=== PATIENT | female | born 1970 | race American Indian/Alaskan Native ===

== ENCOUNTER 2019-09-09 09:55 | Observation (INO) | payer BC ==
--- NOTE | 2019-09-02 11:20 | Anesthesia Consultation ---
Anesthesia Consult and Med Hx Date of service: 09/02/19 - Airway Anesthetic Teeth Evaluation: Caps, Partials (implanted Incisor) ROM Head & Neck: Adequate Mental/Hyoid Distance: Adequate Mallampati Class: Class I Intubation Access Assessment: Good - Pulmonary Exam CTA: Yes - Cardiac Exam Cardiac Exam: RRR - Pre-Operative Health Status ASA Pre-Surgery Classification: ASA2 Proposed Anesthetic Plan: General - Central Nervous System Hx Seizures: Yes (As a child, last at age18) Hx Psychiatric Problems: No - Hematic Hx Anemia: Yes - Other Systems Hx Cancer: No
[2019-09-02 11:22] LABS: Basophils % (Auto) 0.6 % (0.0-1.8); Eosinophils % (Auto) 0.7 % (0.0-4.3); Hemoglobin 7.6 gm/dl (10.1-14.3); Lymphocytes % (Auto) 34.3 % (13.4-35.0); Mean Corpuscular HGB Conc 32 % (30-34); Mean Corpuscular Volume 83 fl (79-97); Monocytes # (Auto) 0.4 K/mm3 (0.0-0.8); Monocytes % (Auto) 6.4 % (0.0-7.3); Platelet Count 353 K/mm3 (140-440); Red Blood Count 2.87 M/mm3 (3.65-5.03); Red Cell Distribution Width 16.9 % (13.2-15.2)
[~2019-09-09 09:55] MED LIST: CELECOXIB 200 MG CAP PO NR; GABAPENTIN 300 MG CAP PO NR; LACTATED RINGERS 1,000 ML IV SCH; MAGNESIUM OXIDE 400 MG TAB PO SCH; MIDAZOLAM 2 MG/2 ML INJ IV NR; SCOPOLAMINE TRANSDERMAL PATCH 72 HR TD NR; SODIUM CHLORIDE 0.9% 500 ML 500 ML IV ONE; fentaNYL 100 MCG/2 ML INJ IV PRN
[2019-09-09] MEDS ORDERED: HYDROmorphone 1 MG/1 ML INJ ONE (10:02)
[2019-09-09] MEDS ORDERED: propofoL 200 MG/20 ML VIAL IV ONE (10:02)
[2019-09-09] MEDS ORDERED: LIDOCAINE MPF (2%) 20 MG/1 ML VIAL 5 ML ONE (10:04)
[2019-09-09] MEDS ORDERED: ROCURONIUM 50 MG/5 ML INJ IV ONE (10:04)
[2019-09-09] MEDS ORDERED: NEOMY 40 MG/POLYMYXIN B 200,000 UNITS/ML (GU) AMPULE IR ONE ×2 (10:14→12:30)
[2019-09-09] MEDS ORDERED: BUPIVACAINE-EPINEPHRINE/PF 0.5%-1:200,000 (30 ML) VIAL INFILTRATI ONE (10:38)
[2019-09-09] MEDS ORDERED: BUPIVACAINE-EPINEPHRINE/PF 0.5%-1:200,000 (10 ML) VIAL INFILTRATI ONE (10:39)
--- NOTE | 2019-09-09 10:59 | History and Physical Report ---
History of Present Illness Date of examination: 09/09/19 Chief complaint: Pelvic pain and prolonged vaginal bleeding History of present illness: Pt is a 49yo BF LMP 08/28/19 presents for surgical evaluation and treatment of pelvic pain and prolonged vaginal bleeding. She complains of pelvic pain for several years, thought to be associated with the Essure device, and has been hospitalized for blood transfusions due to severe anemia. She desires ovarian conservation and now presents for a Robotic Assisted Total Hysterectomy with Bilateral Salpingectomy. Past History Past Medical History: hematologic disorders (anemia) Past Surgical History: other (hernia repair) Family/Genetic History: none Social history: no significant social history, Medications and Allergies Allergies Allergy/AdvReac Type Severity Reaction Status Date / Time latex Allergy Swelling Verified 08/29/19 16:16 Home Medications Medication Instructions Recorded Confirmed Last Taken Type Ergocalciferol [Vitamin D2] 1 cap PO QWEEK 09/02/19 09/09/19 09/02/19 08:00 History Ferrous Sulfate [Feosol] 325 mg PO QDAY 09/02/19 09/09/19 09/08/19 08:00 History Active Meds: Active Medications Celecoxib (Celebrex) 200 mg PO PREOP NR Stop: 09/09/19 23:59 Fentanyl (Sublimaze) 100 mcg IV ONCE PRN PRN Reason: sedation for nerve block Gabapentin (Gabapentin) 600 mg PO PREOP NR Stop: 09/09/19 23:59 Lactated Ringer's (Lactated Ringers) 1,000 mls @ 100 mls/hr IV DIRECT TAVO Cefazolin Sodium (Ancef/Sterile Water 2 Gm/20 Ml) 2 gm in 20 mls @ 80 mls/hr IV PREOP NR; Protocol Magnesium Oxide (Mag-Ox) 400 mg PO PREOP TAVO Midazolam HCl (Versed) 2 mg IV PREOP NR Stop: 09/09/19 23:59 Scopolamine (Transderm-Scop) 1 each TD PREOP NR Stop: 09/09/19 23:59 Review of Systems All systems: negative - Vital Signs Vital signs: Vital Signs Temp Pulse Resp BP Pulse Ox 97.3 F L 74 20 119/81 100 09/02/19 11:00 09/02/19 11:00 09/02/19 11:00 09/02/19 11:00 09/02/19 11:00 Temp Pulse Resp BP Pulse Ox 97.3 F L 74 20 119/81 100 09/02/19 11:00 09/02/19 11:00 09/02/19 11:00 09/02/19 11:00 09/02/19 11:00 - Physical Exam Breasts: Positive: deferred Cardiovascular: Regular rate Lungs: Positive: Clear to auscultation Abdomen: Positive: normal appearance, soft Genitourinary (Female): Positive: normal external genitalia Vagina: Positive: normal moisture Uterus: Positive: normal size Extremities: Positive: normal Results Result Diagrams: 09/02/19 10:00 All other labs normal. Ultrasound: report reviewed Assessment and Plan - Patient Problems (1) Pelvic pain Onset Date: 09/09/19 Current Visit: Yes Status: Chronic Plan to address problem: A: Chronic pelvic pain Menorrhagia Chronic blood loss anemia P: Admit for a Robotic Assisted Total Hysterectomy with Bilateral Salpingectomy May need a blood transfusion during surgery (2) Menorrhagia with irregular cycle Onset Date: 09/09/19 Current Visit: Yes Status: Chronic (3) Chronic blood loss anemia Onset Date: 09/09/19 Current Visit: Yes Status: Chronic
[2019-09-09] MEDS ORDERED: ceFAZolin/Water 2 GM/20 ML 2 GM/20 ML SYRINGE IV NR (11:00)
[2019-09-09] MEDS ORDERED: SODIUM CHLORIDE 0.9% 500 ML 500 ML ONE (11:07)
[2019-09-09] MEDS ORDERED: SODIUM CHLORIDE 0.9% IRRIG SOLN 2000 ML IR ONE (12:30)
[2019-09-09] MEDS ORDERED: SODIUM CHLORIDE 0.9% IRR 1,500 ML BOTTLE IR ONE (12:30)
[2019-09-09] MEDS ORDERED: HYDROmorphone 1 MG/1 ML INJ IV PRN (12:31)
--- NOTE | 2019-09-09 12:31 | Anesthesia Day of Surgery ---
Anesthesia Day of Surgery - Day of Surgery Patient Examined: Yes Patient H&P Reviewed: Yes Patient is NPO: Yes
[2019-09-09] MEDS ORDERED: ONDANSETRON 4 MG/2 ML INJ ONE (13:15)
[2019-09-09] MEDS ORDERED: dexAMETHasone 20 MG/5 ML VIAL ONE (13:15)
[2019-09-09] MEDS ORDERED: LACTATED RINGERS 1,000 ML ONE (14:28)
[2019-09-09] MEDS ORDERED: GLYCOPYRROLATE 0.4 MG/2 ML INJ ONE (14:34)
[2019-09-09] MEDS ORDERED: NEOSTIGMINE 10MG/10 ML INJ MDV ONE (14:34)
--- NOTE | 2019-09-09 14:49 | Operative Report ---
Operative Report Operative Report: Pre-operative diagnosis: 1. Pelvic pain 2. Dysfunctional uterine bleeding 3. Chronic blood loss anemia Post-operative diagnosis: Same Procedure : 1. Robotic-assisted total hysterectomy 2. Bilateral salpingectomy 3. Left ovarian cysectomy Surgeon: Gigi Boogie MD Safety Engineer Pressure Vessels: Bonnie Lawson MD, [facility] Anesthesia: ELIEZER Block followed by general endotracheal intubation EBL: <100 mL's Findings: A 10 weeks size uterus. Fallopian tubes showed evidence of embedded Essure micro-filaments bilaterally, and normal Right ovary with a cystic Left ovary. A large amount of bowel adhesions to the umbilical hernia repair area - this area was avoided. Procedure: After the patient was first correctly identified, she was prepped and draped in the usual sterile fashion and placed in the dorsolithotomy position. The bladder was first catheterized using Hernandez catheter and the speculum was leida lu in the vagina and the anterior lip of the cervix was grasped using a single- tooth tenaculum, and the large Vesicare cup was placed. The tenaculum and speculum was then removed from the vagina and attention was then turned to the abdomen. The skin knife was used to make a small incision approximately 5 cm above the umbilicus through which a 12 mm trocar was placed under direct visualization. There was a large amount of bowel adhesions to the umbilical hernia repair site, thus a 5mm incision was made in the right lower quadrant through which a 5mm scope was used for direct visualization and successfully placement of the 12mm trocar clear of the bowel adhesions and hernia mesh. After adequate amount of abdominal insufflation, visualization of the pelvic organs found the uterus to be enlarged, the fallopian tubes and the right ovary was normal, and the left ovary was cystic. A right and left paramedian incision was made through which the 8 mm trochars were placed under direct visualization. The patient was then placed in steep Trendelenburg positioning and the robot was docked on the patient's left side. After all the robotic ports were connected and adequate functioning of the robotic arms were tested, the surgeon then proceeded to the console to begin the hysterectomy. First the left round ligament was grasped, cauterized and cut, the left utero- ovarian ligament was grasped, cauterized and cut, and the left fallopian tube also grasped, cauterized and cut along the mesosalpinx, thus freeing the left ovary from the left uterine sidewall. The left ovarian cyst was excised and sent to pathology. The same procedure was performed on the right. The right round ligament was grasped, cauterized and cut, the right utero-ovarian ligament was grasped, cauterized and cut, and the right fallopian tube also grasped, cauterized and cut along the mesosalpinx, thus freeing the right ovary from the right uterine sidewall. The bladder flap was taken down anteriorly and the u terine vessels were grasped, cauterized and cut bilaterally. The cardinal ligaments were sequentially grasped, cauterized and cut down to the level of the uterosacral ligaments. At this time the posterior colpotomy was performed over the Vcare cup, and the cervix was circumscribed beginning posteriorly and meeting anteriorly until the cervix was freed. The cervix, uterus and fallopian tubes were then removed through the vagina and sent to pathology. The vaginal cuff was then closed using 2-0 Vloc suture in a running fashion. Irrigation was then performed and after good hemostasis was achieved the procedure was considered complete. The Tisseel sealant was then sprayed across the vaginal cuff site, and after excellent hemostasis was assured, Interceed was placed across the vaginal cuff site. The abdominal pressure was reduced to 8 mmHg and excellent hemostasis was assured. All instruments were then removed from the abdominal cavity. Each incision was closed using 0 Vicryl suture in a [id number] configuration on the fascia followed by 4-0 Monocryl suture in a sub-cuticular fashion on the skin. The vaginal pack was removed. The patient tolerated the procedure well and was transported to the recovery room in stable condition.
[2019-09-09] MEDS ORDERED: ONDANSETRON 4 MG/2 ML INJ IV PRN (14:54)
[2019-09-09] MEDS ORDERED: MORPHINE 4 MG/1 ML INJ IV PRN (14:54)
[2019-09-09] MEDS ORDERED: HYDROcodone/ACETAMINOPHEN 5-325 MG TAB PO PRN (14:54)
[2019-09-09] MEDS ORDERED: oxyCODONE /ACETAMINOPHEN 5-325MG TAB PO PRN (14:54)
[2019-09-09] MEDS ORDERED: MAGNESIUM HYDROXIDE (MOM) ORAL LIQD UDC PO PRN (14:54)
[2019-09-09] MEDS ORDERED: ACETAMINOPHEN 325 MG TAB PO PRN (14:54)
--- NOTE | 2019-09-09 16:37 | Post Anesthesia Evaluation ---
- Post Anesthesia Evaluation Patient Participated: Yes Airway Patent: Yes Stable Respiratory Function: Yes Nausea/Vomiting: No Temp > 96.8F: Yes Pain Manageable: Yes Adequeate Hydration: Yes Anesthesia Complications: No
[2019-09-09] MEDS: KETOROLAC 30 MG/1 ML INJ IV SCH (18:07)
[2019-09-09] MEDS: ceFAZolin/NS 1 GM/50 ML 1 GM/50 ML BAG IV SCH (20:55)
[2019-09-09] MEDS: D5W/LACTATED RINGERS 1,000 ML IV SCH (22:39)
[2019-09-09] MEDS: DOCUSATE SODIUM 100 MG CAP PO SCH (22:40)
[2019-09-10] MEDS: KETOROLAC 30 MG/1 ML INJ IV SCH ×2 (04:50→09:37)
[2019-09-10] MEDS: ceFAZolin/NS 1 GM/50 ML 1 GM/50 ML BAG IV SCH (04:51)
[2019-09-10] MEDS: D5W/LACTATED RINGERS 1,000 ML IV SCH (06:02)
[2019-09-10 06:34] LABS: BUN/Creatinine Ratio 10; Blood Urea Nitrogen 5 mg/dL (7-17); Calcium 8.7 mg/dL (8.4-10.2); Hemolysis Index 24
[2019-09-10 06:48] LABS: Basophils % (Auto) 0.2 % (0.0-1.8); Hematocrit 30.3 % (30.3-42.9); Hemoglobin 9.6 gm/dl (10.1-14.3); Lymphocytes # (Auto) 1.6 K/mm3 (1.2-5.4); Lymphocytes % (Auto) 14.4 % (13.4-35.0); Mean Corpuscular HGB Conc 32 % (30-34); Mean Corpuscular Volume 86 fl (79-97); Monocytes # (Auto) 0.7 K/mm3 (0.0-0.8); Monocytes % (Auto) 6.8 % (0.0-7.3); Platelet Count 299 K/mm3 (140-440); Red Blood Count 3.54 M/mm3 (3.65-5.03); Red Cell Distribution Width 18.8 % (13.2-15.2)
--- NOTE | 2019-09-10 07:56 | Progress Note ---
Assessment and Plan - Patient Problems (1) Pelvic pain Onset Date: 09/09/19 Current Visit: Yes Status: Resolved (2) Menorrhagia with irregular cycle Onset Date: 09/09/19 Current Visit: Yes Status: Resolved (3) Chronic blood loss anemia Onset Date: 09/09/19 Current Visit: Yes Status: Resolved (4) Status post robot-assisted surgical procedure Onset Date: 09/10/19 Current Visit: Yes Status: Resolved Plan to address problem: A: S/P RATH - POD #1 Doing well Asymptomatic anemia - stable P: May go home today. Subjective - Subjective Date of service: 09/10/19 Principal diagnosis: s/p RATH - POD #1 Interval history: Pt is feeling well s/p a Robotic Assisted Total Hysterectomy with Bilateral Salpingectomy. She is tolerating a liquid diet without nausea or vomiting, ambulating and voiding without difficulty. Patient reports: appetite normal, voiding normally, pain well controlled, flatus, ambulating normally, no dizzy ambulation, no nauseated Objective - Vital Signs Latest vital signs: Vital Signs Temp Pulse Resp BP Pulse Ox 09/10/19 05:08 98.2 F 74 20 124/72 99 09/09/19 23:36 98.2 F 68 20 109/55 98 09/09/19 17:12 97.9 F 75 18 139/78 99 09/09/19 16:20 97.5 F L 79 12 140/67 100 09/09/19 15:49 71 16 127/75 100 09/09/19 15:34 97.6 F 72 14 128/77 100 09/09/19 15:19 70 14 131/74 100 09/09/19 15:14 71 14 130/71 100 09/09/19 15:09 70 14 127/71 100 09/09/19 15:04 97.2 F L 72 16 119/74 100 09/09/19 11:47 16 09/09/19 11:45 98.7 F 95 H 16 112/58 98 09/09/19 11:36 99.1 F 91 H 18 111/49 100 09/09/19 10:55 100 H 17 126/81 100 09/09/19 10:50 91 H 15 123/68 100 09/09/19 10:47 20 09/09/19 10:46 94 H 11 L 133/78 95 09/09/19 10:30 98.7 F 77 14 126/73 100 09/09/19 10:05 16 09/09/19 10:00 98.7 F 77 14 126/73 100 Intake and Output 09/09/19 09/10/19 09/10/19 22:59 06:59 14:59 Intake Total 390 1162.917 Output Total 600 1600 Balance -210 -437.083 Intake: IV 150 922.917 ANCEF/NS 1 GM/50 ML 1 gm 50 In 50 ml @ 100 mls/hr IV Q8H TAVO Rx#:[id number] D5lr 1,000 ml @ 125 mls/ 922.917 hr IV DIRECT TAVO Rx#: [id number] Oral 240 240 Output: Urine 600 1600 Indwelling Catheter 400 1600 Other: Total, Intake Amount 240 120 Total, Output Amount 400 1200 Voiding Method Indwelling Catheter - Exam Breasts: Present: deferred Abdomen: Present: normal appearance, soft Incision: Present: normal, dry, intact - Labs Labs: Abnormal lab results 09/09/19 09/10/19 09/10/19 Range/Units 10:20 05:35 05:35 RBC 3.54 L (3.65-5.03) M/mm3 Hgb 9.6 L (10.1-14.3) gm/dl MCH 27 L (28-32) pg RDW 18.8 H (13.2-15.2) % Seg Neutrophils % 78.6 H (40.0-70.0) % Seg Neutrophils # 8.6 H (1.8-7.7) K/mm3 BUN 5 L (7-17) mg/dL Creatinine 0.5 L (0.7-1.2) mg/dL Glucose 122 H (65-100) mg/dL Crossmatch See Detail Laboratory Tests 09/02/19 09/09/19 09/10/19 10:00 10:20 05:35 WBC 5.9 11.0 RBC 2.87 L 3.54 L Hgb 7.6 L 9.6 L Hct 24.0 L 30.3 MCV 83 86 MCH 26 L 27 L MCHC 32 32 RDW 16.9 H 18.8 H Plt Count 353 299 Lymph % (Auto) 34.3 14.4 [place] % (Auto) 6.4 6.8 Eos % (Auto) 0.7 0.0 Baso % (Auto) 0.6 0.2 Lymph # 2.0 1.6 [place] # 0.4 0.7 Eos # 0.0 0.0 Baso # 0.0 0.0 Seg Neutrophils % 58.0 78.6 H Seg Neutrophils # 3.4 8.6 H Sodium Potassium Chloride Carbon Dioxide Anion Gap BUN Creatinine Estimated GFR BUN/Creatinine Ratio Glucose Calcium Blood Type B POSITIVE Antibody Screen Negative Crossmatch See Detail 09/10/19 05:35 WBC RBC Hgb Hct MCV MCH MCHC RDW Plt Count Lymph % (Auto) [place] % (Auto) Eos % (Auto) Baso % (Auto) Lymph # [place] # Eos # Baso # Seg Neutrophils % Seg Neutrophils # Sodium 139 Potassium 4.5 Chloride 104.4 Carbon Dioxide 22 Anion Gap 17 BUN 5 L Creatinine 0.5 L Estimated GFR > 60 BUN/Creatinine Ratio 10 Glucose 122 H Calcium 8.7 Blood Type Antibody Screen Crossmatch
--- NOTE | 2019-09-10 08:40 | Discharge Summary ---
Providers - Providers Date of Admission: 09/09/19 14:54 Date of discharge: 09/10/19 Attending physician: JEFF AN Primary care physician: RONNIE HICKMAN Hospitalization Reason for admission: other (Pelvic pain; Menorrhagia; Dysfunctional uterine bleeding; Chronic blood loss anemia) Procedure: other (Robotic Assisted Total Hysterectomy with Bilateral Salpingectomy; Left ovarian cystectomy) Episiotomy: none Laceration: none Incision: normal, dry, intact Other procedures: none complications: none Discharge diagnosis: other (s/p RATH) Hospital course: Pt is a 49yo BF LMP 08/28/19 who presented for surgical evaluation and treatment of pelvic pain and prolonged vaginal bleeding. She complained of pelvic pain for several years, thought to be associated with the Essure device, and has been hospitalized for blood transfusions due to severe anemia. She desired ovarian conservation and underwent an uncomplicated Robotic Assisted Total Hysterectomy with Bilateral Salpingectomy and Left ovarian cystectomy. By POD #1, she was tolerating a reg diet without nausea or vomiting, ambulating and voiding without difficulty. She was therefore discharged to home on POD #1 in stable condition. Condition at discharge: Good Disposition: DC-01 TO HOME OR SELFCARE - Discharge Diagnoses (1) Pelvic pain Status: Resolved (2) Menorrhagia with irregular cycle Status: Resolved (3) Chronic blood loss anemia Status: Resolved Plan - Discharge Medications Prescriptions: Ibuprofen [Motrin] 800 mg PO Q8HR PRN #30 tablet PRN Reason: Pain, Mild (1-3) HYDROcodone/APAP 5-325 [[place] 5-325 mg TAB] 1 each PO Q6HR PRN #30 tablet PRN Reason: Pain, Moderate (4-6) - Provider Discharge Summary Activity: routine, no sex for 6 weeks, no heavy lifting 4 weeks, no strenuous exercise Diet: routine Instructions: routine Additional instructions: [] Smoking cessation referral if applicable(refer to patient education folder for contact #) [] Refer to [facility] Booklet Call your doctor immediately for: * Fever > 100.5 * Heavy vaginal bleeding ( >1 pad per hour) * Severe persistent headache * Shortness of breath * Reddened, hot, painful area to leg or breast * Drainage or odor from incision. * Keep incision clean and dry at all times and follow doctor's instructions regarding bathing/showering - Follow up plan Follow up: RONNIE HICKMAN JR, MD [Primary Care Provider] - 14 Days JEFF AN MD [Staff Physician] - 10 Days
[2019-09-10] MEDS: DOCUSATE SODIUM 100 MG CAP PO SCH (09:37)
[2019-09-10 12:51] VITALS: BP 116/69
== END 2019-09-10 14:30 | disposition home or self-care (01) ==
LOC: OR 09:55 → OB 14:54
PROVIDERS: ADMIT Obstetrics & Gynecology; ATTEND Obstetrics & Gynecology
DX: D50.0 Iron deficiency anemia secondary to blood loss (chronic) (principal); R10.2 Pelvic and perineal pain; N93.8 Other specified abnormal uterine and vaginal bleeding; Z98.890 Other specified postprocedural states
CPT/HCPCS: 36415; 36430; 58571; 64450; 80048; 81025; 85025; 86850; 86900; 86901; 86920; 88305; 88307; 96365; 96366; 96375; 96376; A4217; C1765; C9250; G0378; J0690; J1100; J1170; J1885; J2250; J2270; J2405; J2704; J2710; J3010; J7040; J7120; J7121; P9016; S2900